=== PATIENT | male | born 1990 | race American Indian/Alaskan Native ===

== ENCOUNTER 2017-03-21 19:22 | Emergency (ER) | payer BC, MEDICAID ==
[2017-03-21 19:31] VITALS: BMI 27.9
[2017-03-21 19:33] VITALS: RESP 18; TEMP 98.2; O2SAT 99
[2017-03-21] MEDS ORDERED: levETIRAcetam 1,000 MG in Sodium Chloride 0.9% 100 ML IV ONE (19:34)
--- NOTE | 2017-03-21 19:44 | ED PDOC ---
Arrival/HPI <GarrisonTylor - Last Filed: 03/21/17 22:06> - General Historian: Patient <JudyHarish Steph - Last Filed: 03/22/17 02:13> - General Chief Complaint: Seizure Time Seen by Provider: 03/21/17 19:32 - History of Present Illness Narrative History of Present Illness (Text): 03/21/17 19:49 26yo male with PMHx of seizure biba for a witnessed seizure DIETARY AID. Patient notes that his mother witnessed the seizure while he was sitting on a couch. States he was not aware that he had seizure. He does not usually have tonic -clonic seizure per the , who was by the bedside. Patient states he ran out of his Keppra 3days go. states he had planned to slate picker the prescription today. Admits to mild headache. He denies urinating on himself. States he bit his lower inner lip. Denies focal weakness, any other complaint. (Harish Kim A) Past Medical History - Provider Review Nursing Documentation Reviewed: Yes - Neurological Hx Seizures: Yes - Psychiatric Hx Substance Use: No - Surgical History Other/Comment: Sinus surgery 2010 <Harish Kim A - Last Filed: 03/22/17 02:13> Family/Social History - Physician Review Nursing Documentation Reviewed: Yes Family/Social History: Unknown Family HX Smoking Status: Never Smoked Hx Alcohol Use: No Hx Substance Use: No <Harish Kim A - Last Filed: 03/22/17 02:13> Allergies/Home Meds <GarrisonTylor - Last Filed: 03/21/17 22:06> <Harish Kim A - Last Filed: 03/22/17 02:13> Allergies/Adverse Reactions: Allergies No Known Allergies Allergy (Unverified 01/21/17 19:40) Home Medications: Home Meds Medication Instructions Recorded Confirmed Levetiracetam [Keppra] 1 tab PO BID 01/21/17 01/21/17 Review of Systems - Physician Review All systems were reviewed & negative as marked: Yes - Review of Systems Constitutional: Normal Eyes: Normal ENT: Normal Respiratory: Normal Cardiovascular: Normal Gastrointestinal: Normal Genitourinary Male: Normal Musculoskeletal: Normal Skin: Normal Neurological: Headache, Seizure. absent: Dizziness, Focal Weakness, Speech Changes Endocrine: Normal Hemo/Lymphatic: Normal Psychiatric: Normal <Harish Kim A - Last Filed: 03/22/17 02:13> Physical Exam Vital Signs Reviewed: Yes Temperature: Afebrile Blood Pressure: Normal Pulse: Regular Respiratory Rate: Normal Appearance: Positive for: Well-Appearing, Non-Toxic, Comfortable Pain Distress: None Mental Status: Positive for: Alert and Oriented X 3 - Systems Exam Head: Present: Atraumatic, Normocephalic Pupils: Present: PERRL Extroacular Muscles: Present: EOMI Conjunctiva: Present: Normal Mouth: Present: Moist Mucous Membranes, Normal Lips, Normal Tounge Neck: Present: Normal Range of Motion Respiratory/Chest: Present: Clear to Auscultation, Good Air Exchange. No: Respiratory Distress, Accessory Muscle Use Cardiovascular: Present: Regular Rate and Rhythm, Normal S1, S2. No: Murmurs Abdomen: Present: Normal Bowel Sounds. No: Tenderness, Distention, Peritoneal Signs Back: Present: Normal Inspection Upper Extremity: Present: Normal Inspection. No: Cyanosis, Edema Lower Extremity: Present: Normal Inspection. No: Edema Neurological: Present: GCS=15, CN II-XII Intact, Speech Normal, Motor Func Grossly Intact, Normal Sensory Function, Normal Cerebellar Funct, Norm Deep Tendon Reflexes, Gait Normal, Memory Normal, Normal 2Pt Descrimination, Other ( No focal neurological deficit) Skin: Present: Warm, Dry, Normal Color. No: Rashes Psychiatric: Present: Alert, Oriented x 3, Normal Insight, Normal Concentration <JudyHarish A - Last Filed: 03/22/17 02:13> Vital Signs Temp Pulse Resp BP Pulse Ox 03/21/17 23:35 78 18 122/70 99 03/21/17 21:16 105/60 03/21/17 19:31 98.2 F 86 18 99 Medical Decision Making <Tylor Ji - Last Filed: 03/21/17 22:06> <Harish Kim A - Last Filed: 03/22/17 02:13> ED Course and Treatment: 03/22/17 02:11 PT presented for stated history. He was neurological intact in ED. Cr. was 5 and repeat lab shoe Cr to be wnl. Head Ct was negative. PT was loaded with keppra in ED. He was advised to fill his rx and take his medication. Referred to his PMD. TRT ED for any new or worsening symptoms. (Harish Kim) - Lab Interpretations Lab Results: 03/21/17 20:00 03/21/17 22:40 Lab Results 03/21/17 22:40: Sodium 137, Potassium 3.8, Chloride 105, Carbon Dioxide 25, Anion Gap 11, BUN 13, Creatinine 0.9, Est GFR ( Amer) > 60, Est GFR (Non- Af Amer) > 60, Random Glucose 90, Calcium 9.3, Total Bilirubin 0.7, AST 40, ALT 35, Alkaline Phosphatase 47, Total Protein 7.3, Albumin 4.1, Globulin 3.2, Albumin/Globulin Ratio 1.3 03/21/17 20:40: Urine Opiates Screen Negative, Urine Methadone Screen Negative, Ur Barbiturates Screen Negative, Ur Phencyclidine Scrn Negative, Ur Amphetamines Screen Negative, U Benzodiazepines Scrn Negative, U Oth Cocaine Metabols Negative, U Cannabinoids Screen Positive H 03/21/17 20:40: Urine Color Yellow, Urine Appearance Clear, Urine pH 6.0, Ur Specific [place] 1.025, Urine Protein 30 H, Urine Glucose (UA) Negative, Urine Ketones Trace H, Urine Blood Negative, Urine Nitrate Negative, Urine Bilirubin Negative, Urine Urobilinogen 0.2, Ur Leukocyte Esterase Negative, Urine RBC Negative, Urine WBC 0 - 2, Ur Epithelial Cells 0 - 2, Urine Bacteria Few, Hyaline Casts 0 - 2 03/21/17 20:00: Sodium 141, Potassium 3.8, Chloride 102, Carbon Dioxide 27, Anion Gap 16, BUN 14, Creatinine 5.0 H, Est GFR ( Amer) 17, Est GFR (Non- Af Amer) 14, Random Glucose 83, Calcium 10.1, Total Bilirubin 0.9, AST 45, ALT 40, Alkaline Phosphatase 57, Total Creatine Kinase 582 H, CK-MB (CK-2) 3.8 H, CK -MB (CK-2) % Cancelled, Total Protein 8.7 H, Albumin 4.9 H, Globulin 3.8, Albumin/Globulin Ratio 1.3 03/21/17 20:00: WBC 6.9, RBC 5.39, Hgb 15.0, Hct 46.0, MCV 85.3, MCH 27.8, MCHC 32.6, RDW 13.1, Plt Count 166, MPV 10.1, Gran % 71.0 H, Lymph % (Auto) 20.4 L, [place] % (Auto) 6.2 H, Eos % (Auto) 2.3, Baso % (Auto) 0.1, Gran # 4.91, Lymph # 1.4, [place] # 0.4, Eos # 0.2, Baso # 0.01 - RAD Interpretation Radiology Orders: 03/21/17 19:32 HEAD W/O CONTRAST [CT] Stat - Medication Orders Current Medication Orders: Discontinued Medications Acetaminophen (Tylenol 325mg Tab) 650 mg PO STAT STA Stop: 03/21/17 20:55 Last Admin: 03/21/17 21:01 Dose: 650 mg MAR Pain/Vitals Document 03/21/17 21:01 GMD (Rec: 03/21/17 21:01 GMD [facility] [id number] Pain Reassessment Is This A Pain ReAssessment? No Sleep Is patient sleeping during reassessment? No Presence of Pain Presence of Pain Yes Location Pain Location Body [place] Levetiracetam 1,000 mg/ Sodium (Chloride) 110 mls @ 440 mls/hr IV ONCE ONE Stop: 03/21/17 19:48 Last Admin: 03/21/17 19:48 Dose: 440 mls/hr eMAR Start Stop Document 03/21/17 19:48 HUE (Rec: 03/21/17 19:48 HUE [id number]) Intravenous Solution Start Date 03/21/17 Start Time 19:48 End Date 03/21/17 End time 20:03 Total Infusion Time 15 Sodium Chloride (Sodium Chloride 0.9%) 1,000 mls @ 250 mls/hr IV .Q4H ONE Stop: 03/21/17 23:52 Last Admin: 03/21/17 20:48 Dose: 250 mls/hr eMAR Start Stop Document 03/21/17 20:48 GMD (Rec: 03/21/17 20:48 GMD [facility] [id number] Intravenous Solution Start Date 03/21/17 Start Time 20:48 End Date 03/22/17 End time 00:48 Total Infusion Time 240 - PA / PRODUCT ANALYST / Resident Statement TYRONE has reviewed & agrees with the documentation as recorded. MD/DO has examined the patient and agrees with the treatment plan. <Tylor Ji - Last Filed: 03/21/17 22:06> Disposition/Present on Arrival <Tylor Ji - Last Filed: 03/21/17 22:06> - Present on Arrival Any Indicators Present on Arrival: No History of DVT/PE: No History of Uncontrolled Diabetes: No Urinary Catheter: No History of Decub. Ulcer: No History Surgical Site Infection Following: None - Disposition Have Diagnosis and Disposition been Completed?: Yes Disposition Time: 22:55 Patient Plan: Discharge <Harish Kim - Last Filed: 03/22/17 02:13> - Disposition Diagnosis: Seizure Disposition: HOME/ ROUTINE Condition: STABLE Discharge Instructions (ExitCare): Recurrent Seizures in Adults (ED) Additional Instructions: Follow up with your doctor Take your medications return to ED for any new or worsening symptoms Referrals: Chris Schroeder MD [Primary Care Provider] - Follow up with primary Forms: [employer] (German)
[2017-03-21] MEDS ORDERED: Sodium Chloride 0.9% 1,000 ML IV ONE (19:53)
[2017-03-21 20:20] LABS: BASO # 0.01 K/mm3 (0.0-2.0); BASO % 0.1 % (0.0-3.0); EOS # 0.2 (0.0-0.7); EOS % 2.3 % (1.5-5.0); GRAN # 4.91 (1.4-6.5); LYMPH # 1.4 (1.2-3.4); LYMPH % 20.4 % (22.0-35.0); MEAN CELL VOLUME 85.3 fl (80.0-105.0); MEAN CORPUSCULAR HEMOGLOBIN 27.8 pg (25.0-35.0); MEAN CORPUSCULAR HGB CONC 32.6 g/dl (31.0-37.0); MEAN PLATELET VOLUME 10.1 fl (7.0-11.0); MONO # 0.4 (0.1-0.6); MONO % 6.2 % (1.0-6.0); RED CELL DISTRIBUTION WIDTH 13.1 % (11.5-14.5); WHITE BLOOD COUNT 6.9 10^3/ul (4.5-11.0)
[2017-03-21 20:55] LABS: URINE BILIRUBIN NEGATIVE (NEGATIVE); URINE BLOOD NEGATIVE (NEGATIVE); URINE GLUCOSE (UA) NEGATIVE (NEGATIVE); URINE KETONE TRACE mg/dL (NEGATIVE); URINE LEUKOCYTE ESTERASE NEGATIVE Leu/uL (NEGATIVE); URINE PROTEIN 30 mg/dL (<30 mg/dL); URINE UROBILINOGEN 0.2 E.U./dL (<1 E.U./dL)
[2017-03-21 21:02] LABS: URINE APPEARANCE CLEAR (CLEAR); URINE COLOR YELLOW (YELLOW)
--- NOTE | 2017-03-21 21:03 | CT ---
EXAM: CT Head Without Intravenous Contrast CLINICAL HISTORY: 26 years old, male; Signs and symptoms; Other: S/P seizure TECHNIQUE: Axial computed tomography images of the head/brain without intravenous contrast. All CT scans at this facility use one or more dose reduction techniques, viz.: automated exposure control; ma/kV adjustment per patient size (including targeted exams where dose is matched to indication; i.e. head); or iterative reconstruction technique. COMPARISON: No relevant prior studies available. FINDINGS: Brain: No intracranial hemorrhage. 0.7 x 0.5 cm calcification/calcified lesion RIGHT frontal region. No definite edema. Ventricles: No hydrocephalus. Bones/joints: No acute fracture. Craniotomy. Soft tissues: Unremarkable. Sinuses: Postsurgical changes. Complete opacification of frontal sinuses. Scattered minimal to mild mucosal thickening of remaining sinuses. Mastoid air cells: No mastoid effusion. Orbits: Unremarkable as visualized. IMPRESSION: 1. No definite acute intracranial abnormality. 2. Sinus disease. 3. Incidental/non-acute findings are described above.
[2017-03-21 21:04] LABS: URINE RBC NEGATIVE /hpf (0-2); URINE WBC 0 - 2 /hpf (0-6)
[2017-03-21 21:05] LABS: URINE BACTERIA FEW (NEG); URINE EPITHELIAL CELLS 0 - 2 /hpf (0-5)
[2017-03-21 21:59] LABS: POTASSIUM 3.8 mmol/L (3.6-5.0)
[2017-03-21 22:00] LABS: ALB/GLOB RATIO 1.3 (1.1-1.8); BILIRUBIN,TOTAL 0.9 mg/dL (0.2-1.3); CALCIUM 10.1 mg/dL (8.4-10.5); TOTAL PROTEIN 8.7 g/dL (5.8-8.3)
[2017-03-21 23:30] LABS: ALB/GLOB RATIO 1.3 (1.1-1.8); ALKALINE PHOSPHATASE 47 U/L (38-126); ALT/SGPT 35 U/L (7-56); AST/SGOT 40 U/L (17-59); BILIRUBIN,TOTAL 0.7 mg/dL (0.2-1.3); BLOOD UREA NITROGEN 13 mg/dL (7-21); CALCIUM 9.3 mg/dL (8.4-10.5); CARBON DIOXIDE 25 mmol/L (21-33); CHLORIDE 105 mmol/L (98-107); GFR AFRICAN-AMERICAN > 60; GLUCOSE,RANDOM 90 mg/dL (70-110); POTASSIUM 3.8 mmol/L (3.6-5.0); SODIUM 137 mmol/L (132-148); TOTAL PROTEIN 7.3 g/dL (5.8-8.3)
[2017-03-21 23:36] VITALS: BP 122/70; PULSE 78
== END 2017-03-21 23:39 | disposition home or self-care (01) ==
LOC: ED 19:22
DX: R56.9 Unspecified convulsions (principal)
CPT/HCPCS: 70450; 80053; 80299; 81001; 82550; 82553; 85025; 96360; 96361; 99285; G0480; J1953; J7040